=== PATIENT | female | born 1975 | race Caucasian/White ===

== ENCOUNTER 2019-11-10 15:36 | Emergency (ER) | payer OTHER, SELFPAY ==
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
[2019-11-10 15:53] VITALS: BP 153/84; PULSE 92; RESP 16; TEMP 37.2; O2SAT 94
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
== END 2019-11-10 18:49 | disposition home or self-care (01) ==
PROVIDERS: Emergency Provider Emergency Medicine
DX: M25.562 Pain in left knee (principal); M79.642 Pain in left hand; S39.92XA Unspecified injury of lower back, initial encounter; E11.9 Type 2 diabetes mellitus without complications; Z79.4 Long term (current) use of insulin; Z79.84 Long term (current) use of oral hypoglycemic drugs; V43.52XA Car driver injured in collision with other type car in traffic accident, initial encounter
CPT/HCPCS: 72131; 73130; 73521; 73562; 81025; 99284